=== PATIENT | male | born 1955 | race Caucasian/White ===

== ENCOUNTER 2022-09-27 08:37 | Outpatient (OUT) | payer MEDICARE, OTHER, SELFPAY ==
--- NOTE | 2022-09-27 08:45 | CT_ITS ---
[address] [address] Patient Name: ROGERIO LIANG MRN: [id number] date: 1955 Sex: M Assigned Patient Location: CT Current Patient Location: CT Accession/Order Number: [id number] Exam Date: 09/27/2022 09:15 Report Date: 09/27/2022 12:43 At the request of: NON-STAFF PHYSICIAN Procedure: CT soft tissue neck wo con EXAM: CT soft tissue neck wo con CLINICAL INDICATION: Tooth infection K04.7, Odynophagia R13.01,Neck [id number] COMPARISON: None TECHNIQUE: Standard nonenhanced CT of the neck. Axial sections with coronal and sagittal reformats were obtained. Dose reduction techniques were achieved by using automated exposure control and/or adjustment of mA and/or kV according to patient size and/or use of iterative reconstruction technique. FINDINGS: Evaluation is limited due to absent intravenous contrast. Lymph Nodes/Soft Tissues: No discrete focal fluid collection. No soft tissue gas. No enlarged or morphologically abnormal lymph nodes. Nasopharynx: Normal. Suprahyoid Neck: Mild soft tissue fullness and fat stranding in the left submandibular and sublingual spaces. Oropharynx, remainder of the oral cavity, parapharyngeal, and retropharyngeal spaces are clear and symmetric. Infrahyoid Neck: Larynx, hypopharynx, and supraglottic area are clear and symmetric. Vocal cords are symmetric. Parotid Glands: Normal. Submandibular Glands: Normal. Thyroid: Normal. Orbits: Normal. Paranasal Sinuses: Well-aerated. Mastoid Air Cells: Well-aerated. Skull Base: Normal. Thoracic Inlet: Visualized lung apices are clear. Vascular Structures: Trace vascular calculations. Musculoskeletal: Several dental caries. No periapical lucencies of any maxillary or mandibular teeth. Multilevel cervicothoracic spondylotic changes. ACDF at C5-C6. IMPRESSION: 1. Mild soft tissue fullness and fat stranding in the left submandibular and sublingual spaces is concerning for an infectious/inflammatory cellulitis. No mass effect, soft tissue gas, or discrete focal fluid collection. 2. No reactive lymphadenopathy. Report was submitted to the clinical operation support team for expedited review by the provider. Electronically authenticated by: BOO NARANJO Date: 09/27/2022 12:43
== END 2022-09-27 08:38 | disposition home or self-care (01) ==
LOC: CT 08:37
PROVIDERS: PCP Family Medicine
DX: K04.7 Periapical abscess without sinus (principal); R13.10 Dysphagia, unspecified; R22.1 Localized swelling, mass and lump, neck
CPT/HCPCS: 70490

== ENCOUNTER 2024-08-06 06:32 | Outpatient (OUT) | payer MEDICARE, OTHER, SELFPAY ==
--- NOTE | 2024-08-06 06:41 | US_ITS ---
The [address] [address] Patient Name: ROGERIO LIANG MRN: [id number] date: 1955 Sex: M Assigned Patient Location: US Current Patient Location: US Accession/Order Number: [id number] Exam Date: 08/06/2024 09:27 Report Date: 08/06/2024 09:29 At the request of: JESSENIA AGUSTIN Procedure: US renal BI BILATERAL RENAL AND BLADDER ULTRASOUND CLINICAL HISTORY: asymptomatic micro hematuria R31.21 COMPARISON: None FINDINGS: Estimation of renal size is approximately 13.1 cm on the right and 12.2 cm on the left. No contour deforming mass, shadowing stone or hydronephrosis. The urinary bladder is partially distended with a volume of 154 ml. No shadowing stone or focal lesion. No significant postvoid residual. US/US renal BI IMPRESSION: No acute findings. Impression dictated by: Guille Bourne Jr., D.O. 08/06/2024 9:29 AM Dictation Location: [place] [address] Electronically authenticated by: [id number] Y Date: 08/06/2024 09:29
== END 2024-08-06 06:33 | disposition home or self-care (01) ==
LOC: US 06:33
PROVIDERS: PCP Family Medicine; Visit Provider Physician Assistant
DX: R31.21 Asymptomatic microscopic hematuria (principal)
CPT/HCPCS: 76775